=== PATIENT | male | born 1995 | race Caucasian/White ===

== ENCOUNTER 2023-04-16 19:06 | Emergency (ER) | payer SELFPAY ==
[~2023-04-16 19:06] MED LIST: Magnevist 469MG/ML 20 ML VIAL ONE
[2023-04-16] MEDS ORDERED: Ketorolac Tromethamine 30 MG/ML VIAL ONE (19:37)
[2023-04-16] MEDS ORDERED: Morphine 4 MG/ML VIAL ONE (20:40)
== END 2023-04-16 22:45 | disposition home or self-care (01) ==
LOC: ERS 19:06
DX: M54.50 Low back pain, unspecified (principal); R50.9 Fever, unspecified; I10 Essential (primary) hypertension; F17.210 Nicotine dependence, cigarettes, uncomplicated
CPT/HCPCS: 72146; 72149; 96374; 96375; A9579; J1885; J2270